=== PATIENT | male | born 1990 | race Caucasian/White ===

== ENCOUNTER 2022-12-04 14:22 | Emergency (ER) | payer OTHER ==
[~2022-12-04] VITALS: Ht 180.3 cm; Wt 146.1 kg
[2022-12-04] MEDS ORDERED: CLONAZEPAM2 MG PO (14:39)
[2022-12-04] MEDS ORDERED: RESTORIL15 MG PO (14:39)
[2022-12-04] MEDS ORDERED: FLUVOXAMINE MAL25 MG PO (14:40)
[2022-12-04] MEDS ORDERED: BUPROPION HCL200 MG PO (14:40)
== END 2022-12-04 16:48 | disposition home or self-care (01) ==
LOC: ER 14:22
DX: B34.9 Viral infection, unspecified (principal); I10 Essential (primary) hypertension; Z88.0 Allergy status to penicillin; Z20.822 Contact with and (suspected) exposure to COVID-19

== ENCOUNTER 2022-12-23 17:33 | Emergency (ER) | payer OTHER ==
[~2022-12-23] VITALS: Ht 180.3 cm; Wt 137.9 kg
[~2022-12-23 17:33] MED LIST: BUPROPION HCL200 MG PO; CLONAZEPAM2 MG PO; FLUVOXAMINE MAL25 MG PO; RESTORIL15 MG PO
== END 2022-12-23 20:25 | disposition home or self-care (01) ==
LOC: ER 17:33
DX: K29.70 Gastritis, unspecified, without bleeding (principal); Z88.0 Allergy status to penicillin

== ENCOUNTER 2023-01-11 17:49 | Emergency (ER) | payer OTHER ==
[~2023-01-11] VITALS: Ht 177.8 cm; Wt 139.7 kg
== END 2023-01-11 23:21 | disposition home or self-care (01) ==
LOC: ER 17:49
DX: N39.0 Urinary tract infection, site not specified (principal)